=== PATIENT | female | born 1970 | race African-American/Black ===

== ENCOUNTER 2019-11-28 11:06 | Emergency (ER) | payer BC ==
[~2019-11-28] VITALS: Ht 172.7 cm; Wt 59.0 kg
[~2019-11-28 11:06] MED LIST: ACETAMINOPHEN-1 EAC1 PO; ATIVAN0.5 MG PO; AUGMENTIN 875875 MG PO; BIRTH CONTROL; DEPO-PROVE150 MG/1 M IM; MACROBID 100 M100 M1 PO; NEXIUM40 MG PO; PREVACID 30MG C30 M1 PO; VALIUM5 MG PO
[2019-11-28 12:22] LABS: ABSOLUTE NEUTROPHILS 2.1 thou/uL (1.4-8.2); BASOPHILS 0.7 % (0.0-2.0); HEMATOCRIT 40.6 % (37.0-47.0); HEMOGLOBIN 13.4 gm/dL (12.0-15.0); LYMPHOCYTES 45.9 % (24.0-44.0); MCH 28.7 pg (26.0-34.0); MCV 87.1 fL (80.0-100.0); MONOCYTES 8.4 % (1.0-8.0); PLATELET COUNT 195 thou/uL (150-400); RBC 4.66 mil/uL (4.20-5.00); RDW 14.3 % (10.5-14.5); WBC 4.7 thou/uL (4.0-11.0)
[2019-11-28 12:32] LABS: ANION GAP 6 mmol/L (7-16); BUN 4 mg/dL (7-18); CHLORIDE 102 mmol/L (98-107); CO2 31 mmol/L (21-32); CREATININE 0.9 mg/dL (0.6-1.0); GLUCOSE 98 mg/dL (74-106); POTASSIUM 3.6 mmol/L (3.5-5.1); SODIUM 139 mmol/L (136-145)
[2019-11-28 12:38] LABS: DIRECT BILIRUBIN < 0.1 mg/dL (<0.1-0.2); LIPASE 138 U/L (73-393); SGOT 23 U/L (15-37); SGPT 24 U/L (30-65); TOTAL BILIRUBIN 0.6 mg/dL (<0.1-1.0); TOTAL PROTEIN 7.9 g/dL (6.4-8.2)
[2019-11-28] MEDS ORDERED: CARAFATE 1 GM TA1 G1 PO (14:26)
[2019-11-28 14:42] VITALS: BP 125/76
== END 2019-11-28 14:45 | disposition home or self-care (01) ==
LOC: ER 11:06
PROVIDERS: Emergency Medicine
DX: K29.70 Gastritis, unspecified, without bleeding (principal); K21.9 Gastro-esophageal reflux disease without esophagitis; Z79.899 Other long term (current) drug therapy

== ENCOUNTER 2020-11-26 14:44 | Emergency (ER) | payer BC ==
[~2020-11-26] VITALS: Ht 172.7 cm; Wt 54.4 kg
[~2020-11-26 14:44] MED LIST changes: +CARAFATE 1 GM TA1 G1 PO
[2020-11-26] MEDS ORDERED: MEDROLDOSEPACK PO (18:17)
[2020-11-26] MEDS ORDERED: METHOCARBAMOL500 M2 PO (18:17)
[2020-11-26 18:36] VITALS: BP 140/97
--- NOTE | 2020-11-27 07:31 | EKG ---
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 : 1970 Requested By: Jimbo Zavala Order Number: [id number] MD: Gregory Zamora Measurements Intervals [place] Rate: 86 P: 64 RI: 132 QRS: 73 QRSD: 85 T: -15 QT: 364 QTc: 436 Interpretive Statements Sinus rhythm Borderline T abnormalities, inferior leads Compared to ECG 07/23/2014 03:56:48 T-wave abnormality now present Electronically Signed On 11-27-2020 7:31:46 CDT by Gregory Zamora [email or web address] <ELECTRONICALLY SIGNED> By: Gregory Zamora MD, [facility] 11/27/20 0731 1505 [id number] Gregory Zamora MD, FACC /EPI
== END 2020-11-26 18:36 | disposition home or self-care (01) ==
LOC: ER 14:44
DX: M54.12 Radiculopathy, cervical region (principal); K21.9 Gastro-esophageal reflux disease without esophagitis; Z79.899 Other long term (current) drug therapy; Z79.2 Long term (current) use of antibiotics